=== PATIENT | male | born 2000 | race Caucasian/White ===

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

== ENCOUNTER 2018-01-09 12:32 | Emergency (ER) | payer OTHER ==
[2018-01-09 12:38] VITALS: BP 151/75
--- NOTE | 2018-01-09 13:01 | EDPHY ---
H & P Stated Complaint: ST/COUGH X 5 DAYS Time Seen by Provider: 01/09/18 12:56 HPI/ROS: HPI: This is a 17-year-old male who presents Chief Complaint: Sore throat and cough x5 days Location: throat and chest Quality: Sore, cough Duration: 5 days Signs and Symptoms: + fever, no nausea, no vomiting, no diarrhea, no urinary symptoms, no chest pain, no shortness of breath, no wheezing, + nonproductive cough, + sore throat, no neck stiffness, no joint pain, + swollen glands, no ear pain, no rash Timing: Worsening Severity: [id number] Context: Patient presents with 5 day history of gradually worsening sore throat accompanied by fever of 102 at home 2 days ago, white spots on his tonsils that are enlarged and discomfort with swallowing. Patient reports that he has a dry nonproductive cough that is worse at night for the last 2 days. Denies any wheezing, neck stiffness, ear pain, nasal congestion, rhinorrhea. 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 Modifying Factors: None Comment: ROS: see HPI Constitutional: + fever, no chills, no weight loss Eyes: No blurred vision Respiratory: No shortness of breath, no cough Cardiovascular: No chest pain, no palpitations Gastrointestinal: No nausea, no vomiting, no diarrhea, no hematemesis, no blood in stool Genitourinary: No dysuria, no blood in urine Extremities: No myalgias, no edema Neurologic: No weakness, no numbness Skin: No rashes, no petechiae Hematologic: No bruising, no bleeding MEDICAL/SURGICAL/SOCIAL HISTORY: Medical history: Generally healthy. Does not take any regular medications. Surgical history: Denies Social history: Employed, nonsmoker. Family history noncontributory. CONSTITUTIONAL: Polite and cooperative but ill-appearing teenage male , awake and alert, no obvious distress HEENT: Atraumatic and normocephalic, PERRL, EOMI. Nares patent; no rhinorrhea; no nasal mucosal edema. Tympanic membranes clear. Oropharynx clear, no postpharyngeal edema; tonsils 2+ with white exudate and moderate erythema; uvula midline. Airway patent. Moderate anterior cervical lymphadenopathy. No meningismus. Cardiovascular: Normal S1/S2, regular rate, regular rhythm, without murmur rub or gallop. PULMONARY/CHEST: Symmetrical and nontender. Clear to auscultation bilaterally. Good air movement. No accessory muscle usage. ABDOMEN: Soft, nondistended, nontender, no rebound, no guarding, no peritoneal signs, no masses or organomegaly. No CVAT. EXTREMITIES: 2/2 pulses, strength 5/5, no deformities, no clubbing, no cyanosis or edema. NEUROLOGICAL: no focal neuro deficits. GCS 15. Speech clear. SKIN: Warm and dry, no erythema. no rash. Good capillary refill. Source: Patient Exam Limitations: No limitations - Personal History Current Tetanus Diphtheria and Acellular Pertussis (TDAP): Yes - Medical/Surgical History Hx Asthma: No Hx Chronic Respiratory Disease: No Hx Diabetes: No Hx Cardiac Disease: No Hx Renal Disease: No Hx Cirrhosis: No Hx Alcoholism: No Hx HIV/AIDS: No Hx Splenectomy or Spleen Trauma: No Other PMH: DENIES - Social History Smoking Status: Never smoked Constitutional: Initial Vital Signs Temperature (C) 36.8 C 01/09/18 12:36 Heart Rate 64 01/09/18 12:36 Respiratory Rate 17 01/09/18 12:36 Blood Pressure 151/75 H 01/09/18 12:36 O2 Sat (%) 94 01/09/18 12:36 O2 Delivery Mode Room Air Allergies/Adverse Reactions: No Known Allergies Allergy (Verified 01/09/18 12:36) Home Medications: Medication Instructions Recorded Adderall 10 MG (RX) 06/09/15 Amoxicillin Trihydrate [Amoxil] 500 mg PO TID 10 Days cap 01/09/18 Medical Decision Making ED Course/Re-evaluation: Modified Centor Score= 3/5; recommendation is to treat with empiric antibiotics. No strep culture obtained. 1. Age Range: 15-44 years 0 2. Exudate or swelling on tonsils: Yes 3. Tender/swollen anterior cervical lymph nodes: Yes 4. Temp greater than 30 degree C: Yes 5. Cough: Present=0 Prescription for amoxicillin 500 mg 3 times a day times 10 days. No signs of tonsillar abscess, respiratory distress, airway compromise, meningitis. Lung exam is benign. This patient was seen under the supervision of my secondary supervising physician. I evaluated care for this patient independently. Discussed this patient with Dr. Alexander did not see the patient. Differential Diagnosis: Adult fever including but not limited to viral syndromes including influenza, strep pharyngitis, bronchitis, pneumonia and sepsis. Departure - Departure Disposition: Home, Routine, Self-Care Clinical Impression: Exposure to Streptococcal pharyngitis, Tonsillitis with exudate Condition: Good Instructions: Strep Throat (ED) Additional Instructions: Consume a minimum of 8-10 glasses of water or electrolyte fluid replacement drinks that include Gatorade, Powerade, Pedialyte. Eat a bland diet for the next 48 hours and then slowly advance as tolerated. Take Tylenol 650 mg every 4 hours and/or Ibuprofen 600 mg every 8 hours with food as needed for pain. Take Amoxicillin 3 times a day for the next 10 days. Do not skip a dose. Return to the ER immediately if you cannot swallow, have drooling, fevers, neck stiffness, cannot open your jaw, or any other symptoms that concern you. Referrals: [facility],. [Clinic] - As per Instructions Stand Alone Forms: Work Excuse Prescriptions: Amoxicillin Trihydrate [Amoxil] 500 mg PO TID 10 Days cap
== END 2018-01-09 13:13 | disposition home or self-care (01) ==
DX: J03.90 Acute tonsillitis, unspecified (principal)